=== PATIENT | male | born 2000 | race Two or more races ===

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

== ENCOUNTER 2021-02-26 06:57 | Observation (INO) | payer BC ==
[~2021-02-26] VITALS: Ht 180.3 cm; Wt 95.2 kg
[2021-02-26 07:59] LABS: BASOPHILS ABSOLUTE AUTO 0.07 K/mm3 (0.00-0.23); BASOPHILS PERCENT AUTO 1 % (0-2); EOSINOPHILS ABSOLUTE AUTO 0.14 K/mm3 (0.00-0.68); EOSINOPHILS PERCENT AUTO 2 % (0-6); Hematocrit 45.2 % (37.0-53.0); IMMATURE GRAN ABSOLUTE AUTO 0.02 K/mm3 (0.00-0.10); IMMATURE GRAN PERCENT AUTO 0 % (0-1); LYMPHOCYTES ABSOLUTE AUTO 3.27 K/mm3 (0.84-5.20); LYMPHOCYTES PERCENT AUTO 40 % (21-46); MONOCYTES ABSOLUTE AUTO 0.52 K/mm3 (0.16-1.47); MONOCYTES PERCENT AUTO 6 % (4-13); Mean Corpuscular HGB 28.5 pg (26.0-34.0); Mean Corpuscular HGB Conc 33.2 g/dL (31.5-36.5); Mean Corpuscular Volume 86 fL (80-100); Mean Platelet Volume 9.5 fL (9.1-12.4); NEUTROPHILS ABSOLUTE AUTO 4.08 K/mm3 (1.96-9.15); NEUTROPHILS PERCENT AUTO 50 % (41-73); Platelet Count 280 K/mm3 (150-400); RDW Coefficient Variation 12.7 % (11.7-14.2); RDW Standard Deviation 39.5 fL (35.1-46.3); Red Blood Cell Count 5.27 M/mm3 (4.30-5.90)
[2021-02-26 09:01] LABS: Alanine Aminotransfer (ALT/SGP 35 U/L (12-78); Albumin, Blood 4.1 g/dL (3.4-5.0); Albumin/Globulin Ratio 1.3 (0.8-1.8); Alk Phos 65 U/L (58-237); Anion Gap 7 mmol/L (6-16); Aspartate Aminotrans (AST/SGOT 20 U/L (12-37); Bilirubin, Total 0.7 mg/dL (0.1-1.0); Blood Urea Nitrogen 11 mg/dL (8-21); Bun/Creatinine Ratio 15.1 (12.0-20.0); CO2, Blood 28 mmol/L (21-32); Calcium, Blood 9.3 mg/dL (8.5-10.1); Chloride, Blood 109 mmol/L (98-108); Creatinine, Blood 0.73 mg/dL (0.60-1.20); Globulin, Blood 3.2 g/dL (2.2-4.0); Glomerular Filtration Rate >60 (60-); Glucose, Blood 131 mg/dL (70-99); Potassium, Blood 3.7 mmol/L (3.5-5.5); Sodium, Blood 144 mmol/L (136-145); Total Protein, Blood 7.3 g/dL (6.4-8.2)
[2021-02-26 11:14] LABS: Influenza A, PCR NEGATIVE (NEGATIVE); Influenza B, PCR NEGATIVE (NEGATIVE); Resp Syncytial Virus, PCR NEGATIVE (NEGATIVE); SARS-Cov-2 (COVID-19) PCR, MMC NEGATIVE (NEGATIVE)
[2021-02-26 14:26] LABS: U Amphetamine Screen Not Detected; U Barbituate Screen Not Detected; U Benzodiazapine Screen Not Detected; U Buprenorphine Screen Not Detected; U Cannabinoids Screen DETECTED; U Cocaine Screen Not Detected; U Methadone Screen Not Detected; U Methamphetamine Screen Not Detected; U Opiates Screen Not Detected; U Oxycodone Screen Not Detected; U Phencyclidine Screen Not Detected; U Propoxyphene Screen Not Detected
== END 2021-02-27 11:30 | disposition home or self-care (01) ==
LOC: ER 06:57 → EOR 06:58
PROVIDERS: ADMIT Emergency Medicine
DX: F23 Brief psychotic disorder (principal); F19.10 Other psychoactive substance abuse, uncomplicated; F17.210 Nicotine dependence, cigarettes, uncomplicated; Z20.822 Contact with and (suspected) exposure to COVID-19
CPT/HCPCS: 0241U; 80053; 85025; 99285; A9270; G0378

== ENCOUNTER 2022-06-07 22:11 | Observation (INO) | payer OTHER ==
[~2022-06-07] VITALS: Ht 182.9 cm; Wt 79.4 kg
[2022-06-07 23:25] LABS: BASOPHILS ABSOLUTE AUTO 0.09 K/mm3 (0.00-0.23); BASOPHILS PERCENT AUTO 1 % (0-2); EOSINOPHILS ABSOLUTE AUTO 0.14 K/mm3 (0.00-0.68); EOSINOPHILS PERCENT AUTO 1 % (0-6); Hematocrit 45.3 % (37.0-53.0); IMMATURE GRAN ABSOLUTE AUTO 0.02 K/mm3 (0.00-0.10); IMMATURE GRAN PERCENT AUTO 0 % (0-1); LYMPHOCYTES ABSOLUTE AUTO 3.29 K/mm3 (0.84-5.20); LYMPHOCYTES PERCENT AUTO 29 % (21-46); MONOCYTES ABSOLUTE AUTO 0.78 K/mm3 (0.16-1.47); MONOCYTES PERCENT AUTO 7 % (4-13); Mean Corpuscular HGB 28.4 pg (26.0-34.0); Mean Corpuscular HGB Conc 33.1 g/dL (31.5-36.5); Mean Corpuscular Volume 86 fL (80-100); Mean Platelet Volume 9.5 fL (9.1-12.4); NEUTROPHILS ABSOLUTE AUTO 6.98 K/mm3 (1.96-9.15); NEUTROPHILS PERCENT AUTO 62 % (41-73); Platelet Count 292 K/mm3 (150-400); RDW Coefficient Variation 13.1 % (11.7-14.2); RDW Standard Deviation 40.9 fL (35.1-46.3); Red Blood Cell Count 5.28 M/mm3 (4.30-5.90)
[2022-06-07 23:47] LABS: Ethanol (Alcohol), Blood, Med <3 mg/dL; Salicylate 1.9 mg/dL (2.8-20.0)
[2022-06-07 23:48] LABS: Acetaminophen, Random <2.0 ug/mL (10.0-30.0); Alanine Aminotransfer (ALT/SGP 25 U/L (12-78); Albumin, Blood 4.4 g/dL (3.4-5.0); Albumin/Globulin Ratio 1.2 (0.8-1.8); Alk Phos 62 U/L (50-136); Anion Gap 5 mmol/L (6-16); Aspartate Aminotrans (AST/SGOT 17 U/L (12-37); Bilirubin, Total 0.4 mg/dL (0.1-1.0); Blood Urea Nitrogen 12 mg/dL (8-24); Bun/Creatinine Ratio 15.9 (12.0-20.0); CO2, Blood 29 mmol/L (21-32); Calcium, Blood 9.3 mg/dL (8.5-10.1); Chloride, Blood 106 mmol/L (98-108); Creatinine, Blood 0.75 mg/dL (0.60-1.20); Globulin, Blood 3.6 g/dL (2.2-4.0); Glomerular Filtration Rate 132 (60-); Glucose, Blood 99 mg/dL (70-99); Potassium, Blood 3.9 mmol/L (3.5-5.5); Sodium, Blood 140 mmol/L (136-145)
[2022-06-08 00:09] LABS: Influenza A, PCR NEGATIVE (NEGATIVE); Influenza B, PCR NEGATIVE (NEGATIVE); Resp Syncytial Virus, PCR NEGATIVE (NEGATIVE); SARS-Cov-2 (COVID-19) PCR, MMC NEGATIVE (NEGATIVE)
[2022-06-08 00:19] LABS: U Amphetamine Screen Not Detected; U Barbituate Screen Not Detected; U Benzodiazapine Screen Not Detected; U Buprenorphine Screen Not Detected; U Cannabinoids Screen DETECTED; U Cocaine Screen Not Detected; U Methadone Screen Not Detected; U Methamphetamine Screen Not Detected; U Opiates Screen Not Detected; U Oxycodone Screen Not Detected; U Phencyclidine Screen Not Detected; U Propoxyphene Screen Not Detected
== END 2022-06-14 10:00 | disposition home or self-care (01) ==
LOC: ER 22:11 → EOR 22:12
PROVIDERS: ADMIT Emergency Medicine
DX: F31.5 Bipolar disorder, current episode depressed, severe, with psychotic features (principal); F17.210 Nicotine dependence, cigarettes, uncomplicated; F12.10 Cannabis abuse, uncomplicated; Z20.822 Contact with and (suspected) exposure to COVID-19
CPT/HCPCS: 0241U; 80053; 85025; 96372; 99285; A9270; G0378; G0480; J1200; J1630; J2060; Q3014

== ENCOUNTER 2023-07-18 21:21 | Observation (INO) | payer OTHER ==
[~2023-07-18] VITALS: Ht 180.3 cm; Wt 117.9 kg
[2023-07-19 07:56] VITALS: BP 150/85
== END 2023-07-19 11:02 | disposition home or self-care (01) ==
LOC: ER 21:21 → EOR 21:22
PROVIDERS: ADMIT Emergency Medicine
DX: F43.25 Adjustment disorder with mixed disturbance of emotions and conduct (principal); F31.2 Bipolar disorder, current episode manic severe with psychotic features; F17.210 Nicotine dependence, cigarettes, uncomplicated; Z79.899 Other long term (current) drug therapy

== ENCOUNTER 2024-03-21 23:43 | Emergency (ER) | payer OTHER ==
[~2024-03-21] VITALS: Ht 180.3 cm; Wt 120.6 kg
[~2024-03-21 23:43] MED LIST changes: +RISPERIDONE110 PO
[2024-03-21 23:58] VITALS: BP 106/41
== END 2024-03-22 00:50 | disposition home or self-care (01) ==
LOC: ER 23:43
DX: F41.9 Anxiety disorder, unspecified (principal); F17.210 Nicotine dependence, cigarettes, uncomplicated; Z79.899 Other long term (current) drug therapy
CPT/HCPCS: 93005; 93010; 99283-25

== ENCOUNTER 2024-07-25 08:17 | Emergency (ER) | payer OTHER ==
[~2024-07-25] VITALS: Ht 177.8 cm; Wt 113.4 kg
[2024-07-25 08:55] VITALS: BP 145/89
[2024-07-25 09:19] LABS: Source, Urine Clean Catch
[2024-07-25 09:22] LABS: Appearance, Urine Clear (Clear); Bilirubin, Urine Neg (Neg); Blood, Urine 2+ (Neg); Color, Urine Yellow (P-Yellow); Glucose Qualitative, Urine Neg (Neg); Ketones, Urine Neg (Neg); Leukocyte Esterase, Urine Neg (Neg); Nitrite, Urine Neg (Neg); Protein, Urine 2+ (Neg); Urobilinogen, Urine NORM (Normal)
[2024-07-25 09:29] LABS: Bacteria Rare /hpf; Red Blood Cells, Urine 0-2 /hpf (0-2); Squamous Epithelial Cells Not Seen /hpf (Few); White Blood Cells, Urine 0-2 /hpf (0-5)
== END 2024-07-25 09:49 | disposition home or self-care (01) ==
LOC: ER 08:17
PROVIDERS: Emergency Medicine
DX: N50.811 Right testicular pain (principal)
CPT/HCPCS: 76870; 81001; 99284-25

== ENCOUNTER 2024-11-20 00:29 | Emergency (ER) | payer OTHER ==
[~2024-11-20] VITALS: Ht 180.3 cm; Wt 120.2 kg
[2024-11-20 01:52] VITALS: BP 152/91
== END 2024-11-20 01:52 | disposition home or self-care (01) ==
LOC: ER 00:29
DX: H53.122 Transient visual loss, left eye (principal); R51.9 Headache, unspecified; I10 Essential (primary) hypertension; F17.210 Nicotine dependence, cigarettes, uncomplicated; Z79.899 Other long term (current) drug therapy
CPT/HCPCS: 99283

== ENCOUNTER 2024-12-21 01:14 | Emergency (ER) | payer OTHER ==
[~2024-12-21] VITALS: Ht 177.8 cm; Wt 90.7 kg
[2024-12-21 02:47] LABS: BASOPHILS ABSOLUTE AUTO 0.10 K/mm3 (0.00-0.23); BASOPHILS PERCENT AUTO 1 % (0-2); EOSINOPHILS ABSOLUTE AUTO 0.01 K/mm3 (0.00-0.68); EOSINOPHILS PERCENT AUTO 0 % (0-6); Hematocrit 48.8 % (37.0-53.0); Hemoglobin 16.1 g/dL (13.5-17.5); IMMATURE GRAN ABSOLUTE AUTO 0.09 K/mm3 (0.00-0.10); IMMATURE GRAN PERCENT AUTO 1 % (0-1); LYMPHOCYTES ABSOLUTE AUTO 2.52 K/mm3 (0.84-5.20); LYMPHOCYTES PERCENT AUTO 14 % (21-46); MONOCYTES ABSOLUTE AUTO 1.10 K/mm3 (0.16-1.47); MONOCYTES PERCENT AUTO 6 % (4-13); Mean Corpuscular HGB Conc 33.0 g/dL (31.5-36.5); Mean Corpuscular Volume 83 fL (80-100); NEUTROPHILS ABSOLUTE AUTO 14.89 K/mm3 (1.96-9.15); NEUTROPHILS PERCENT AUTO 80 % (41-73); NRBC ABSOLUTE 0.00 K/mm3 (0.00-0.02); NRBC Auto 0.0 /100 WBC (0.0-0.2); Platelet Count 392 K/mm3 (150-400); RDW Coefficient Variation 13.2 % (11.7-14.2); RDW Standard Deviation 40.8 fL (35.1-46.3)
[2024-12-21 02:51] LABS: Source, Urine Clean Catch
[2024-12-21 02:59] LABS: Bilirubin, Urine Neg (Neg); Glucose Qualitative, Urine Neg (Neg); Ketones, Urine 3+ (Neg); Leukocyte Esterase, Urine Neg (Neg); Protein, Urine 2+ (Neg); Specific Gravity, Urine 1.020 (1.003-1.022); Urobilinogen, Urine NORM (Normal)
[2024-12-21 03:07] LABS: Ethanol (Alcohol), Blood, Med <3 mg/dL; Salicylate 2.0 mg/dL (2.8-20.0)
[2024-12-21 03:24] LABS: Alanine Aminotransfer (ALT/SGP 27 U/L (12-78); Albumin, Blood 5.1 g/dL (3.4-5.0); Albumin/Globulin Ratio 1.3 (0.8-1.8); Anion Gap 12 mmol/L (3-11); Aspartate Aminotrans (AST/SGOT 18 U/L (12-37); Bilirubin, Total 0.5 mg/dL (0.1-1.0); Blood Urea Nitrogen 9 mg/dL (8-24); CO2, Blood 26 mmol/L (21-32); Calcium, Blood 10.3 mg/dL (8.5-10.1); Chloride, Blood 103 mmol/L (98-108); Creatinine, Blood 0.91 mg/dL (0.60-1.20); Globulin, Blood 3.9 g/dL (2.2-4.0); Glucose, Blood 99 mg/dL (70-99); Potassium, Blood 3.9 mmol/L (3.5-5.5); Sodium, Blood 137 mmol/L (136-145); Total Protein, Blood 9.0 g/dL (6.4-8.2)
[2024-12-21 03:25] LABS: Acetaminophen, Random <2.0 ug/mL (10.0-30.0)
[2024-12-21 03:26] LABS: Color, Urine Yellow (P-Yellow); Red Blood Cells, Urine 0-2 /hpf (0-2); White Blood Cells, Urine 0-2 /hpf (0-5)
[2024-12-21 03:42] LABS: U Amphetamine Screen Not Detected; U Barbiturate Screen Not Detected; U Benzodiazapine Screen Not Detected; U Buprenorphine Screen Not Detected; U Cannabinoids Screen DETECTED; U Cocaine Screen Not Detected; U Methadone Screen Not Detected; U Methamphetamine Screen Not Detected; U Opiates Screen Not Detected; U Oxycodone Screen Not Detected; U Phencyclidine Screen Not Detected
[2024-12-21 17:54] VITALS: BP 124/87
== END 2024-12-21 21:40 | disposition other institution (70) ==
LOC: ER 01:14 → EOR 01:15 → ER 01:15 → EOR 01:15
PROVIDERS: Student in an Organized Health Care Education/Training Program
DX: F29 Unspecified psychosis not due to a substance or known physiological condition (principal); R45.851 Suicidal ideations; F17.210 Nicotine dependence, cigarettes, uncomplicated; Z79.899 Other long term (current) drug therapy
CPT/HCPCS: 80053; 80320; 81001; 85025; 96372; 99285-25; A9270; G0480

== ENCOUNTER 2024-12-21 01:15 | Inpatient (IN) | payer OTHER ==
[~2024-12-21] VITALS: Wt 114.0 kg
[2024-12-21] MEDS ORDERED: LORazepam 2 MG/ML 1ML Injection IM PRN (18:50)
[2024-12-21] MEDS ORDERED: FLU VACC TS2025-26(6MOS UP)/PF 45 MCG/0.5 ML SYRINGE IM SCH (18:55)
[2024-12-21] MEDS ORDERED: Haloperidol Lactate Inj. 5 MG/ML Injection IM PRN (18:55)
[2024-12-21] MEDS ORDERED: DiphenhydrAMINE HCl 50 MG/ML 1ML Vial IM PRN (18:55)
[2024-12-21] MEDS ORDERED: Aluminum Hydroxide 320MG/5ML 473 ML PO PRN (19:00)
[2024-12-21] MEDS ORDERED: Polyethylene Glycol 3350 17 gm PO PRN (19:00)
[2024-12-21] MEDS ORDERED: Ondansetron 4 MG SoluTab MM PRN (19:00)
[2024-12-21 22:08] VITALS: BP 120/69
[2024-12-21 22:39] VITALS: BP 120/69
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
--- NOTE | 2024-12-22 02:09 | NUR ---
Assumed care at 0030. Patient quite loud and animated. MASS score 9. Zyprexa given for high anxiety and Trazodone given to assist with getting to sleep. Patient took about one hour, then layed down in bed and fell asleep. Will continue close monitoring every 15 minutes for safety and comfort
--- NOTE | 2024-12-22 04:18 | NUR ---
Patient up multiple times wandering the milieu and talking loudly throughout the night. Medications Zyprexa and trazodone did not seem to phase him. He is extremely addicted to cigarettes and was asking hourly to go outside. No comoplaints of pain or discomfort noted overnight. Patient denied SI,HI and AVTH during brief interview when this RN took over care at 2400. Will continue close monitoring every 15 minutes for safety and comfort
[2024-12-22] MEDS ORDERED: Multivitamins 1 Tab PO SCH (09:00)
[2024-12-22 09:01] VITALS: BP 121/92
--- NOTE | 2024-12-22 13:34 | NUR ---
SHIFT ASSESSMENT: SHIFT ASSESSMENT: PT ALERT AND ORIENTED TO SELF AND LOCATION. PT VERBALIZED FRUSTRATION R/T ADMISSION TO UNIT AND HOLD STATUS. STATES THAT HE DOESN'T UNDERSTNAD WHY THE CASING WRINGER OPERATOR WERE CALLED ON HIM OR WHY HE WAS BROUGHT HERE. PT WITH FLIGHT OF IDEAS THROUGH OUT COVERSATION BOUNCING FROM SUBJECT TO SUBJECT. PT BECAME INCREASINGLY MORE AGGITATED AND WAS MEDICATED WITH PRN PER MASS SCORE. MEDICATED AT 0949 WITH VISTARIL FOR MASS SCORE OF 4 AND ZYPREXA AT 1108 FOR MASS SCORE OF 8. PT REPEATEDLY ASKING TO SMOKE OR VAPE. EDUCATED MULTIPLE TIMES ON [facility] SMOKING AND VAPING POLICY AND PROVIDED WITH WRITTEN COPY. PT PROVIDED WITH NICOTINE GUM WHEN REQUESTED AND WITHIN PRN PARAMETERS. PT HAS BEEN PACING IN THE CHAVEZ, TALKING WITH PEERS FROM TIME TO TIME.
[2024-12-22 14:43] VITALS: BP 141/83
--- NOTE | 2024-12-22 18:14 | NUR ---
SHIFT SUMMARY: PT AGGITATED OFF AND ON THROUGHOUT THE SHIFT. ASKING MULTIPLE TIMES TO BE ALLOWED TO SMOKE. HE WAS MEDICATED AT 1451 WITH PRN ZYPREXA FOR PER EMAR FOR MASS SCRORE OF 8. PT HAD A VISIT WITH HIS PARENTS, HE APPEARED RESTLESS DURING THE VISIT, STANDING AND PACING. PER UNIT [facility] PT HAD BEEN TRYING TO OPEN DOORS AT TIMES DURING THE DAY. PT WAS PRESENT FOR MEALS AND ATTENDED AFTERNOON GROUP. PT MONITORED WITH Q 15 MIN CHECKS FOR SAFETY.
[2024-12-22 21:02] VITALS: BP 145/76
--- NOTE | 2024-12-23 04:21 | NUR ---
Patient alert and oriented times two. He is still obsessed with being able to go out and smoke. He paced the floors about every 30-40 minutes all night despite receiving a Zyprexa at 0100 for a mass score of 9. He complained of no pain, and denied SI,HI and AVTH during evening assessment. Hot showers, books and sensory room were offered to patient and he refused each one of them.. Will continue close monitoring every 15 minutes for safety and comfort.
[2024-12-23 08:05] LABS: CHOL/HDL RATIO 3.9; Cholesterol 141 mg/dL (50-200); HDL Cholesterol 36 mg/dL (>39); LDL/HDL RATIO 2.1; Low Density Lipoprotein Chol 77 mg/dL (0-110); Triglycerides 139 mg/dL (30-140); Very Low Density Lipoprot Chol 27 mg/dL (6-28)
[2024-12-23 08:21] VITALS: BP 154/94
[2024-12-23] MEDS ORDERED: CYCL10 PO (15:56)
[2024-12-23] MEDS ORDERED: PALIPERIDONE ER3 MG PO (15:58)
[2024-12-23] MEDS ORDERED: LAMO100 PO (15:59)
--- NOTE | 2024-12-23 17:44 | NUR ---
SHIFT SUMMARY PT IS AA&O TO PERSON, PLACE, SITUATION. HE IS PLEASANT AND COOPERATIVE WITH CARE. HE REPORTS HIS MOOD IS UP AND DOWN. AFFECT IS CONGRUENT. HE HAS IMPROVED FROM YESTERDAY. HE IS INTERACTING WELL WITH STAFF AND PEERS. HE IS PARTICIPATING IN ACTIVITIES. HE IS FIGETY AT TIMES BUT IS ABLE TO REDIRECT. HE WAS ABLE TO COME TO THIS RN WHEN HE FELT HE NEEDED SOMETHING FOR ANXIETY. HE WAS MEDICATED X1 WITH VISTRIL WITH GOOD EFFECT. HE DENIES SI, AVH. SPEECH HAS CLEAR HE GOES OFF TOPIC BUT IS FLUID. HE WAS DC ORIENTATED THIS MORNING WANTING TO LEAVE. HE DOES UNDERSTAND HE IS ON A HOLD. HE WAS GIVEN A PIECE OF PAPER WITH THE DAY HOLD WAS PLACED AND DAY IT WILL END. THIS SEEMS TO HAVE STOPPED OBSEVIVE THOUTS ABOUT DC. NOW HE JUST REPORTS HE WILL DC FRIDAY.WILL CONTINUE POC
[2024-12-23 19:12] VITALS: BP 151/97
[2024-12-23] MEDS ORDERED: Divalproex Sodium 500 MG TABCR PO SCH (21:00)
--- NOTE | 2024-12-24 04:08 | NUR ---
SHIFT SUMMARY 24 YEAR-OLD MALE PRESENTS WELL GROOMED. HE IS ALERT AND ORIENTED. HE SPEAKS IN A CLEAR VOICE AND IN AN APPROPRIATE VOLUME. HE IS ABLE TO MAKE AND KEEP EYE CONTACT DURING CONVERSATIONS. AT THE TIME OF HIS ASSESSMENT, HE DESCRIBED HIS MOOD OKAY. HE ALSO DENIED SI, HI, AND AVTH AT THAT TIME. HE ATTENDED DINNER, SNACK, AND DAY ROOM. HE DID NOT COMPLETE A COMMUNITY MEETING WRAP UP FORM. HE RECEIVED TRAZADONE AT 2156 FOR SLEEP. HE AWOKE AT APPROXIMATELY 0230. HE REQUESTED VISTARIL AND NICORETTE AT APPROXIMATELY 0340. HE CONTINUES TO BE MONITORED EVERY 15 MINUTES FOR WELLNESS AND SAFETY. HE IS UNDER AN INVOLUTARY HOLD WHICH EXPIRES ON DECEMBER 27, 2024
[2024-12-24 08:55] VITALS: BP 149/83
--- NOTE | 2024-12-24 15:50 | NUR ---
SHIFT SUMMARY PT DENIES SI, HI, AVTH. ATTENDED GROUPS, PACED HALLS, ATE MEALS. PT REQUESTED HYDROXYZINE FOR ANXIETY D/T OTHER PT "PISSING ME OFF". PT WAS ABLE TO DEESCALATE AFTER TALKING W/ STAFF. PT MAKES FREQUENT COMMENTS ABOUT WANTING TO GO HOME, BUT WILL FOLLOW UP WITH ", BUT DOCTOR SAYS I HAVE TO WAIT TILL FRIDAY". PT HASN'T DISPLAYED ANY PHYSICAL AGGRESSION OR RAISING OF VOICE THIS SHIFT.
[2024-12-24 19:11] VITALS: BP 137/68
--- NOTE | 2024-12-25 05:46 | NUR ---
SHIFT SUMMARY Pt is A&O, calm, cooperative, polite, appropriately dressed and groomed, eye contact is appropriate. Pt stated that his mood is "tired," affect is constricted. Pt denies SI, HI, and hallucinations. Pt endorsed neck and shoulder pain 2/10w at time of assessment. Pt stated that he was a up and down in his mood today because of the uncertainty of his discharge from [facility] to the recovery center, where he will be treated during the remainder of his civil commitment. But once he was told that he could discharge on Friday, he said he felt better. Pt continues to struggle with sleep and agitation. Pt received PRN trazodone x2. Pt requested PRN olanzapine with his second trazodone at 2130 for intrusive thoughts and anxiety; MASS 4. Pt was up to nurse station at 2240 and initially requested a third dose of trazodone, but it was explained that a third dose was not authorized and that he should talk to the provider about getting an increased, scheduled dose. He requested PRN melatonin for sleep and ibuprofen for leg pain/restless leg 5/10w. Pt was asleep at reassessment. Staff continues to monitor q15m for safety and wellness.
--- NOTE | 2024-12-25 16:23 | NUR ---
SHIFT SUMMARY PT A/O X4; COOPERATIVE WITH CARE. HE DENIES SI, HI, AVTH. PT REPORTS ANXIETY AND WAS TREATED PER EMR WITH GOOD EFFECT. HE REPORTS HIS MOOD LABILE AND APPEARS RESTLESS. PT OFTEN PACES THE CHAVEZ AND IS EAGER TO LEAVE ON FRIDAY. PT IS EASILY REDIRECTED. AFFECT IS CONGRUENT TO STATED MOOD AND EYE CONTACT IS GOOD. PT DID NOT PARTICIPATE IN GROUPS DUE TO "NOT BEING ABLE TO SIT STILL". PT CURRENTLY PLAYING VIDEO GAMES IN THE DAY ROOM WITH PEERS.
[2024-12-25 19:10] VITALS: BP 124/86
--- NOTE | 2024-12-26 06:14 | NUR ---
SHIFT SUMMARY Pt is A&O, calm, cooperative, polite, appropriately dressed and groomed, eye contact is appropriate. Pt describes his mood as at "chill," affect is constricted. Pt denies SI, HI, and hallucinations. Pt endorsed left thigh pain 3/10w; no PRN requested. Pt continues to report many vague S/Sx, including the thigh pain, asking if they are side effects to his medications. Pt requested PRN trazodone with his HS meds. At about 2205 pt requested a second dose of trazodone and Tums for indigestion. Staff continues to monitor q15m for safety and wellness.
[2024-12-26 08:58] VITALS: BP 140/82
--- NOTE | 2024-12-26 16:46 | NUR ---
SHIFT SUMMARY PT A/O X4; COOPERATIVE WITH CARE. NO ACUTE CHANGES THIS SHIFT. PT CONTINUES TO DENY SI, HI, AVTH. HE REPORTS BEING ANTSY AND IS EXCITED TO DISCHARGE TOMORROW. HIS AFFECT IS CONGRUENT TO STATED MOOD AND HE ATTENDED SOME GROUPS THIS SHIFT.
[2024-12-26 19:50] VITALS: BP 147/77
--- NOTE | 2024-12-27 05:17 | NUR ---
SHIFT SUMMARY Pt is A&O, calm, cooperative, polite, appropriately dressed and groomed, eye contact is appropriate. Pt describes his mood as at "ready to be home," affect is constricted. Pt denies SI, HI, and hallucinations. Pt endorsed dental pain 5/10 worse and requested PRN APAP, which brought the pain down to 1. Pt was active on the unit throughout the evening. Pt requested PRN trazodone with his HS meds. He requested a second dose of trazodone at about 2240. Staff continues to monitor q15m for safety and wellness.
[2024-12-27 08:45] VITALS: BP 135/68
[2024-12-27] MEDS ORDERED: DIVA500ER PO (12:37)
[2024-12-27] MEDS ORDERED: RISP2 PO (12:37)
[2024-12-27] MEDS ORDERED: PRAZ1 PO (12:38)
--- NOTE | 2024-12-27 13:01 | NUR ---
DISCHARGE NOTE: PT ALERT, ORIENTED AND COOPERATIVE WITH CARE. DENIED SI, HI AND AVH. PT PROVIDED WITH DISCHARGE INSTRUCTIONS AND ATTACHED LABS. BELONGINGS RETURNED BY CLEVE Wandy. PT AMBULTED OUT OF UNIT WITHOUT DIFFICULTY. DISCHARGE INSTRUCTIONS AND BELONGINGS IN HAND.
== END 2024-12-27 12:52 | disposition home or self-care (01) | DRG 885 ==
LOC: BHU 01:15
PROVIDERS: ADMIT Psychiatry & Neurology Psychiatry
DX: F25.0 Schizoaffective disorder, bipolar type (principal); F17.210 Nicotine dependence, cigarettes, uncomplicated; Z79.899 Other long term (current) drug therapy
CPT/HCPCS: 36415; 80061; 83036; A9270

== ENCOUNTER 2025-01-15 09:45 | Emergency (ER) | payer OTHER ==
[~2025-01-15] VITALS: Ht 182.9 cm; Wt 113.4 kg
[~2025-01-15 09:45] MED LIST changes: +CYCL10 PO; +DIVA500ER PO; +LAMO100 PO; +PALIPERIDONE ER3 MG PO; +PRAZ1 PO; +RISP2 PO
[2025-01-15] MEDS ORDERED: NS 500 ML IV SCH ×3 (10:20→12:35)
[2025-01-15] MEDS ORDERED: LORazepam 2 MG/ML 1ML Injection IV ONE (10:20)
[2025-01-15] MEDS ORDERED: Magnesium Sulf 2 GM/Water 50ML 50 ML IV ONE (10:20)
[2025-01-15 10:29] LABS: BASOPHILS ABSOLUTE AUTO 0.10 K/mm3 (0.00-0.23); BASOPHILS PERCENT AUTO 1 % (0-2); EOSINOPHILS ABSOLUTE AUTO 0.09 K/mm3 (0.00-0.68); EOSINOPHILS PERCENT AUTO 1 % (0-6); Hematocrit 46.2 % (37.0-53.0); Hemoglobin 15.4 g/dL (13.5-17.5); IMMATURE GRAN ABSOLUTE AUTO 0.06 K/mm3 (0.00-0.10); IMMATURE GRAN PERCENT AUTO 0 % (0-1); LYMPHOCYTES ABSOLUTE AUTO 4.77 K/mm3 (0.84-5.20); LYMPHOCYTES PERCENT AUTO 35 % (21-46); MONOCYTES ABSOLUTE AUTO 0.95 K/mm3 (0.16-1.47); MONOCYTES PERCENT AUTO 7 % (4-13); Mean Corpuscular HGB Conc 33.3 g/dL (31.5-36.5); Mean Corpuscular Volume 83 fL (80-100); NEUTROPHILS ABSOLUTE AUTO 7.86 K/mm3 (1.96-9.15); NEUTROPHILS PERCENT AUTO 57 % (41-73); NRBC ABSOLUTE 0.00 K/mm3 (0.00-0.02); NRBC Auto 0.0 /100 WBC (0.0-0.2); Platelet Count 420 K/mm3 (150-400); RDW Coefficient Variation 13.2 % (11.7-14.2); RDW Standard Deviation 39.8 fL (35.1-46.3)
[2025-01-15 10:39] LABS: Alanine Aminotransfer (ALT/SGP 28.0 U/L (12-78); Albumin, Blood 4.4 g/dL (3.4-5.0); Albumin/Globulin Ratio 1.1 (0.8-1.8); Anion Gap 9.0 mmol/L (3-11); Aspartate Aminotrans (AST/SGOT 16.0 U/L (12-37); Bilirubin, Total 0.3 mg/dL (0.1-1.0); Blood Urea Nitrogen 12.0 mg/dL (8-24); CO2, Blood 24.0 mmol/L (21-32); Calcium, Blood 9.7 mg/dL (8.5-10.1); Chloride, Blood 107.0 mmol/L (98-108); Creatinine, Blood 0.77 mg/dL (0.60-1.20); Globulin, Blood 3.9 g/dL (2.2-4.0); Glucose, Blood 148.0 mg/dL (70-99); Magnesium, Blood 2.1 mg/dL (1.6-2.4); Potassium, Blood 3.4 mmol/L (3.5-5.5); Sodium, Blood 137.0 mmol/L (136-145); Total Protein, Blood 8.3 g/dL (6.4-8.2)
[2025-01-15 10:48] LABS: Thyroid Stimulating Hormone 0.97 uIU/mL (0.360-4.800)
[2025-01-15 12:45] VITALS: BP 136/74
== END 2025-01-15 12:52 | disposition home or self-care (01) ==
LOC: ER 09:45
PROVIDERS: Student in an Organized Health Care Education/Training Program
DX: R00.0 Tachycardia, unspecified (principal); F15.929 Other stimulant use, unspecified with intoxication, unspecified; E86.0 Dehydration; F41.9 Anxiety disorder, unspecified; E87.6 Hypokalemia; F17.210 Nicotine dependence, cigarettes, uncomplicated; Z79.899 Other long term (current) drug therapy
CPT/HCPCS: 71045; 80053; 83735; 84439; 84443; 85025; 93005; 93010; 96365; 96375; 99284-25; J2060; J3475; J7030

== ENCOUNTER 2025-03-08 19:23 | Emergency (ER) | payer OTHER ==
[~2025-03-08] VITALS: Ht 180.3 cm; Wt 108.9 kg
[2025-03-08 20:04] LABS: BASOPHILS ABSOLUTE AUTO 0.07 K/mm3 (0.00-0.23); BASOPHILS PERCENT AUTO 1 % (0-2); EOSINOPHILS ABSOLUTE AUTO 0.10 K/mm3 (0.00-0.68); EOSINOPHILS PERCENT AUTO 1 % (0-6); Hematocrit 48.2 % (37.0-53.0); Hemoglobin 16.6 g/dL (13.5-17.5); IMMATURE GRAN ABSOLUTE AUTO 0.04 K/mm3 (0.00-0.10); IMMATURE GRAN PERCENT AUTO 0 % (0-1); LYMPHOCYTES ABSOLUTE AUTO 2.90 K/mm3 (0.84-5.20); LYMPHOCYTES PERCENT AUTO 27 % (21-46); MONOCYTES ABSOLUTE AUTO 0.71 K/mm3 (0.16-1.47); MONOCYTES PERCENT AUTO 7 % (4-13); Mean Corpuscular HGB Conc 34.4 g/dL (31.5-36.5); Mean Corpuscular Volume 81 fL (80-100); NEUTROPHILS ABSOLUTE AUTO 7.11 K/mm3 (1.96-9.15); NEUTROPHILS PERCENT AUTO 65 % (41-73); NRBC ABSOLUTE 0.00 K/mm3 (0.00-0.02); NRBC Auto 0.0 /100 WBC (0.0-0.2); Platelet Count 345 K/mm3 (150-400); RDW Coefficient Variation 13.3 % (11.7-14.2); RDW Standard Deviation 39.2 fL (35.1-46.3)
[2025-03-08 20:32] LABS: Alanine Aminotransfer (ALT/SGP 54.0 U/L (12-78); Albumin, Blood 4.7 g/dL (3.4-5.0); Albumin/Globulin Ratio 1.1 (0.8-1.8); Anion Gap 9.0 mmol/L (3-11); Aspartate Aminotrans (AST/SGOT 33.0 U/L (12-37); Bilirubin, Total 0.4 mg/dL (0.1-1.0); Blood Urea Nitrogen 11.0 mg/dL (8-24); CO2, Blood 25.0 mmol/L (21-32); Calcium, Blood 9.6 mg/dL (8.5-10.1); Chloride, Blood 108.0 mmol/L (98-108); Creatinine, Blood 0.69 mg/dL (0.60-1.20); Globulin, Blood 4.1 g/dL (2.2-4.0); Glucose, Blood 94.0 mg/dL (70-99); Potassium, Blood 3.7 mmol/L (3.5-5.5); Sodium, Blood 138.0 mmol/L (136-145); Total Protein, Blood 8.8 g/dL (6.4-8.2)
[2025-03-08 21:38] VITALS: BP 134/73
== END 2025-03-08 21:39 | disposition home or self-care (01) ==
LOC: ER 19:23
PROVIDERS: Student in an Organized Health Care Education/Training Program
DX: M94.0 Chondrocostal junction syndrome [Tietze] (principal); F17.210 Nicotine dependence, cigarettes, uncomplicated; Z79.899 Other long term (current) drug therapy
CPT/HCPCS: 71046; 80053; 84484; 85025; 93005; 93010; 96374-59; 99285-25